=== PATIENT | female | born 1990 | race Caucasian/White ===

== ENCOUNTER 2020-12-26 | Emergency (ER) | payer SELFPAY ==
[2020-12-26] MEDS ORDERED: AMOXICILLIN500 M2 PO (05:23)
[2020-12-26] MEDS ORDERED: PERCOCET 5/321 COMBO PO (05:23)
== END 2020-12-26 05:58 | disposition home or self-care (01) | DRG 159 ==
DX: K02.9 Dental caries, unspecified (principal); F17.210 Nicotine dependence, cigarettes, uncomplicated

== ENCOUNTER 2021-02-27 10:49 | Emergency (ER) | payer SELFPAY ==
[~2021-02-27] VITALS: Ht 162.6 cm; Wt 68.1 kg
[~2021-02-27 10:49] MED LIST: AMOXICILLIN500 M2 PO; PERCOCET 5/321 COMBO PO
[2021-02-27] MEDS ORDERED: TORADOL PO (12:08)
[2021-02-27] MEDS ORDERED: PENICILLN VK500 MG PO (12:08)
[2021-02-27 12:33] VITALS: BP 137/69
== END 2021-02-27 12:33 | disposition home or self-care (01) | DRG 159 ==
LOC: ED 10:49
DX: K03.81 Cracked tooth (principal); F17.210 Nicotine dependence, cigarettes, uncomplicated